=== PATIENT | male | born 1960 | race Caucasian/White ===

== ENCOUNTER 2018-11-12 21:47 | Inpatient (IN) | payer MEDICARE, OTHER ==
[2018-11-12 22:36] VITALS: BP 128/80
[2018-11-12] MEDS ORDERED: Fleet Enema 135 mL RC PRN (22:41)
[2018-11-12] MEDS ORDERED: Magnesium Hydroxide (MOM) 30 mL UDC PO PRN (22:41)
[2018-11-12] MEDS ORDERED: Maalox 30 mL Cup PO PRN (22:41)
[2018-11-13 08:12] LABS: CHOLESTEROL 135 mg/dL (<200); HDL -HIGH DENSITY LIPOPROTEIN 56 mg/dL (23-92); TRIGLYCERIDES 84 mg/dL (<150)
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
--- NOTE | 2018-11-15 00:33 | Progress Notes ---
"DATE: 11/14/2018 SUMMARY: Case was discussed with staff of the patient and reviewed records. The patient continues to be very aggressive, irritable, unpredictable, and impulsive. He was walking in and out of traffic. He became very agitated when I tried to talk to him. He is unable to carry on a conversation or make safe plan for his self-care. He continues to have poor insight about the whole process, looking disheveled and disorganized. He is homeless. He was started on Prozac yesterday by me at 10 mg and I added Zyprexa 5 mg. I will be increasing his Zyprexa dose to 10 mg to help with his agitation and delusional thinking, as he thinks he is the president of [employer]. No side effects, no sedation, no nausea, and no extrapyramidal symptoms. We will continue to work with the patient in group therapy, milieu therapy, and adjust the medications as needed. JOB# [id number]"
--- NOTE | 2018-11-15 12:48 | Progress Notes ---
DATE: 11/15/2018 Case was discussed with staff of the patient, reviewed records. The patient continues to have poor insight, unpredictable, impulsive, continues to be easily agitated. I did increase his Zyprexa dose yesterday to 10 mg. He is also on Prozac 10 mg daily with no side effects. No sedation or nausea. No extrapyramidal symptoms. We will continue to work with the patient in group therapy, milieu therapy, adjust medication as needed. JOB# [id number]
--- NOTE | 2018-11-16 07:03 | Progress Notes ---
DATE: IDENTIFICATION: A 58-year-old male. SUBJECTIVE: The patient is seen and examined. The patient is lying in the bed. The patient denies any chest pain, shortness of breath, palpitation, dizziness, nausea, or vomiting. PHYSICAL EXAMINATION: VITAL SIGNS: Temperature 98.6, pulse 74, respiratory rate 18, and blood pressure 118/64. HEENT: Poor dentition. NECK: Supple, no JVD. HEART: Regular. LUNGS: Clear. ABDOMEN: Soft. EXTREMITIES: No edema. CLINICAL IMPRESSION: 1. Psychotic disorder. 2. Polysubstance abuse. 3. Right foot wound under the care of wound care. PLAN: 1. Continue to provide wound care. 2. Psych medication. 3. Nutritional support. 4. General nursing care. 5. Symptoms management. 6. Medication management. 7. Care plan reviewed and discussed with staff. JOB# [id number]
--- NOTE | 2018-11-17 10:38 | Progress Notes ---
DATE: 11/16/2018 SUBJECTIVE: Case was discussed with staff of the patient, reviewed records. The patient continues to be unpredictable, impulsive, easily agitated. Continues to have poor insight, needing redirection. No side effects of the medication. No sedation, no nausea, no extrapyramidal symptoms. We will continue to work with the patient in group therapy, milieu therapy, adjust her medications. JOB# [id number]
--- NOTE | 2018-11-18 00:39 | Progress Notes ---
DATE: 11/17/2018 Case was discussed with staff of the patient, reviewed records. The patient continues to be easily agitated, continues to have poor insight. Continues to be unpredictable, impulsive, needing redirection. I did increase his Zyprexa to 10 mg on the 11/14/2018. Today, I will be increasing to 12.5 mg at bedtime to help with his agitation, unpredictable, out of control behavior and we will continue the patient in group therapy, milieu therapy, adjust medication as needed. JOB# [id number]
--- NOTE | 2018-11-18 02:33 | Progress Notes ---
DATE: 11/17/2018 SUBJECTIVE: The patient is seen and examined. PHYSICAL EXAMINATION: GENERAL: The patient is lying in the bed. The patient has no new complaint. VITAL SIGNS: Temperature 97.9, pulse is 74, respiratory rate 18, and blood pressure 126/72. HEENT: No facial asymmetry. Poor dentition. NECK: Supple, no JVD, no hepatojugular reflex. No lymphadenopathy, thyromegaly, or carotid bruits. HEART: Both S1 and S2 are regular. No S3, no S4, no murmur. CHEST AND LUNGS: Equal in expansion. No expiratory wheezing. ABDOMEN: Soft, no guarding or rigidity. Bowel sounds present. No palpable mass. EXTREMITIES: No edema. Right foot ulcer also noted. CLINICAL IMPRESSION: 1. Right foot open wound. 2. Psychotic disorder. 3. Homelessness. 4. Polysubstance abuse. PLAN: 1. Wound has been examined and continue wound care as prescribed. 2. Psych medication. 3. Psych followup. 4. Nutrition support. 5. Continue other medicine as prescribed. 6. Discharge planning as per psychiatrist. JOB# [id number]
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
--- NOTE | 2018-11-20 05:51 | Progress Notes ---
DATE: 11/19/2018 SUBJECTIVE: The patient was seen and evaluated. The patient's chart reviewed. COVERING FOR: Dr. Marshall Today on [id number]-[id number] evaluation, easily refuses interview, reporting that he does have a mental illness. He just stated that he had a mental illness, so he is kept in the hospital. MENTAL STATUS EXAMINATION: Irritable, agitated, aloof and disengaged. ASSESSMENT AND PLAN: The patient continues to be disengaged, withdrawn and guarded and minimizing his hospitalization continues to be high risk. JOB# [id number]
--- NOTE | 2018-11-21 01:02 | Progress Notes ---
DATE: SUBJECTIVE: Case was discussed with staff of the patient and reviewed records. The patient continues to have poor insight. Continues to be unpredictable, impulsive with episodes of agitation, I did increase his Zyprexa in the last 2 days. He is unpredictable, impulsive, disorganized, easily agitated, irritable. No side effects with the medication, no sedation, no nausea, no extrapyramidal symptoms. We will continue to work with the patient in group therapy, milieu therapy, and adjust medication as needed. JOB# [id number]
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
== END 2018-11-22 15:30 | DRG 751 ==
LOC: GERO2 21:47 → GERO 11-13 19:10
PROVIDERS: ADMIT Psychiatry & Neurology Psychiatry; ATTEND Psychiatry & Neurology Psychiatry
DX: F33.3 Major depressive disorder, recurrent, severe with psychotic symptoms (principal); S91.301A Unspecified open wound, right foot, initial encounter; F23 Brief psychotic disorder; F19.10 Other psychoactive substance abuse, uncomplicated; Z59.0 Homelessness; X58.XXXA Exposure to other specified factors, initial encounter; Y93.89 Activity, other specified; Y92.89 Other specified places as the place of occurrence of the external cause; Y99.8 Other external cause status
CPT/HCPCS: 36415-UA; 80061-TC; 83036-90; G0410; J7051; Z7610